=== PATIENT | female | born 1955 | race African-American/Black ===

== ENCOUNTER 2018-05-30 23:58 | Emergency (ER) | payer MEDICAID, OTHER ==
[~2018-05-30] VITALS: Ht 175.3 cm; Wt 74.0 kg
[~2018-05-30 23:58] MED LIST: EMTR1TAB4 PO; FOLI1TAB47 PO; HYDR-3282 PO; HYDR12.529 PO; SERT25TA PO
[2018-05-31] MEDS ORDERED: FAMOTIDINE 20MG/2ML VIAL IV ONE (00:15)
[2018-05-31] MEDS ORDERED: METHYLPREDNISOLONE SOD SUCC 125 MG/2 ML VIAL IV ONE (00:15)
[2018-05-31] MEDS ORDERED: DIPHENHYDRAMINE 50MG/ML VIAL IV ONE ×2 (00:15→00:45)
[2018-05-31] MEDS ORDERED: SODIUM CHLORIDE 0.9% 1,000 ML IV ONE (00:15)
[2018-05-31 04:17] VITALS: BP 105/66
== END 2018-05-31 04:33 | disposition home or self-care (01) ==
LOC: ER 23:58
DX: T78.09XA Anaphylactic reaction due to other food products, initial encounter (principal); I10 Essential (primary) hypertension; J44.9 Chronic obstructive pulmonary disease, unspecified; Z90.710 Acquired absence of both cervix and uterus; Z88.3 Allergy status to other anti-infective agents
CPT/HCPCS: 96374; 96375; 99291; J1200; J2930; J3490; J7030

== ENCOUNTER 2019-03-09 13:36 | Emergency (ER) | payer MEDICAID, OTHER ==
[~2019-03-09] VITALS: Ht 154.9 cm; Wt 72.0 kg
[2019-03-09] MEDS ORDERED: METHYLPREDNISOLONE SOD SUCC 125 MG/2 ML VIAL IV STA (14:29)
[2019-03-09] MEDS ORDERED: ALBUTEROL (0.083%) 2.5MG/3ML NEB HHN STA (14:29)
[2019-03-09 15:03] LABS: BASOPHILS % 1.4 % (0.0-2.0); EOSINOPHILS % 1.7 % (0.0-5.0); HEMATOCRIT. 43.1 % (36.0-48.0); HEMOGLOBIN. 14.3 g/dL (12.0-16.0); LYMPHOCYTES % 35.1 % (20.0-50.0); MEAN CORPUSCULAR HEMOGLOBIN 29.4 pg (28.0-32.0); MEAN CORPUSCULAR VOLUME 88.6 fL (81.0-99.0); MEAN PLATELET VOLUME 9.8 fl (7.4-10.4); MONOCYTES % 9.2 % (2.0-8.0); NEUTROPHILS % 52.6 % (40.0-76.0); PLATELET 192 x1000/uL (130-400); RED BLOOD CELL COUNT 4.87 mill/uL (4.2-5.4); RED CELL DISTRIBUTION WIDTH 14.7 % (11.6-14.6)
[2019-03-09 15:07] LABS: CHLORIDE 110 mEq/L (98-107)
[2019-03-09 19:40] VITALS: BP 156/91
== END 2019-03-09 19:42 | disposition left against medical advice (07) ==
LOC: ER 13:36 → CANBEDREQ 21:24
DX: J44.1 Chronic obstructive pulmonary disease with (acute) exacerbation (principal); E11.9 Type 2 diabetes mellitus without complications; I10 Essential (primary) hypertension; Z90.710 Acquired absence of both cervix and uterus; Z90.89 Acquired absence of other organs; Z96.659 Presence of unspecified artificial knee joint; Z88.1 Allergy status to other antibiotic agents; Z79.899 Other long term (current) drug therapy
CPT/HCPCS: 36415; 71045; 80053; 83880; 84484; 85025; 93005; 94640; 96374; 99284; J2930; J7611; Z7610

== ENCOUNTER 2020-12-13 19:59 | Emergency (ER) | payer MEDICARE, OTHER ==
[~2020-12-13] VITALS: Ht 144.8 cm; Wt 73.0 kg
[~2020-12-13 19:59] MED LIST changes: -HYDR-3282 PO; +HYDR-4348 PO
[2020-12-13] MEDS ORDERED: KETOROLAC 30MG/ML VIAL IV STA (23:59)
[2020-12-14 00:37] LABS: BASOPHILS % 1.2 % (0.0-2.0); EOSINOPHILS % 2.1 % (0.0-5.0); HEMATOCRIT. 43.9 % (36.0-48.0); HEMOGLOBIN. 14.7 g/dL (12.0-16.0); LYMPHOCYTES % 32.1 % (20.0-50.0); MEAN CORPUSCULAR HEMOGLOBIN 29.4 pg (28.0-32.0); MEAN PLATELET VOLUME 10.3 fl (7.4-10.4); MONOCYTES % 6.6 % (2.0-8.0); PLATELET 216 x1000/uL (130-400); RED BLOOD CELL COUNT 4.99 mill/uL (4.2-5.4)
[2020-12-14 00:45] LABS: PROTHROMBIN TIME 10.5 sec (9.6-11.0)
[2020-12-14 00:46] LABS: CHLORIDE 107 mEq/L (98-107)
[2020-12-14 00:48] LABS: CLARITY URINE CLOUDY (CLEAR); COLOR URINE YELLOW (YELLOW); KETONES URINE NEGATIVE (NEGATIVE); LEUKOCYTE ESTERASE URINE TRACE (NEGATIVE); NITRITE URINE NEGATIVE (NEGATIVE); OCCULT BLOOD URINE NEGATIVE (NEGATIVE); PH URINE 5.5 (4.5-8.0); PROTEIN URINE NEGATIVE (NEGATIVE); SPECIFIC GRAVITY URINE 1.023 (1.005-1.030); UROBILINOGEN URINE 0.2 E.U./dL (0.2-1.0)
[2020-12-14 02:40] VITALS: BP 130/75
== END 2020-12-14 03:05 | disposition home or self-care (01) ==
LOC: ER 19:59
DX: R10.9 Unspecified abdominal pain (principal)
CPT/HCPCS: 36415; 74176; 80053; 81003; 85025; 85610; 93005; 99285; J1885

== ENCOUNTER 2022-09-20 17:19 | Emergency (ER) | payer MEDICARE, MEDICAID ==
[~2022-09-20] VITALS: Ht 167.6 cm; Wt 89.0 kg
[2022-09-20 20:11] VITALS: BP 136/77
== END 2022-09-20 20:12 | disposition home or self-care (01) ==
LOC: ER 17:19
DX: H93.13 Tinnitus, bilateral (principal); J44.9 Chronic obstructive pulmonary disease, unspecified; E11.9 Type 2 diabetes mellitus without complications; I10 Essential (primary) hypertension; Z90.710 Acquired absence of both cervix and uterus; Z79.899 Other long term (current) drug therapy
CPT/HCPCS: 99284